=== PATIENT | female | born 1980 | race Two or more races ===

== ENCOUNTER 2017-08-06 06:10 | Day surgery (SDC) | payer OTHER ==
[~2017-08-06 06:10] MED LIST: AMOX250 PO; DICY20TA PO; NEXIUM40 MG/PACK PO; PHENERGAN25 MG PO; ZANTAC 7575 MG PO
== END 2017-08-06 10:55 | disposition home or self-care (01) ==
LOC: AMB-ENDOS 06:10
DX: K92.1 Melena (principal); N82.3 Fistula of vagina to large intestine; K92.2 Gastrointestinal hemorrhage, unspecified

== ENCOUNTER 2025-01-03 06:33 | Day surgery (SDC) | payer OTHER ==
[2025-01-01 11:41] VITALS: BP 139/90
[~2025-01-03] VITALS: Ht 162.6 cm; Wt 95.3 kg
[~2025-01-03 06:33] MED LIST changes: +MULTI VITAMIN1 EACH PO
[2025-01-03] MEDS ORDERED: POVIDONE-IODINE 118 ML BOTT TOP ONE (12:00)
[2025-01-03] MEDS ORDERED: PROMETHAZINE HCL 50 MG/ML AMPUL IM ONE (13:15)
[2025-01-03] MEDS ORDERED: MORPHINE SULFATE 4 MG/ML VIAL IV PRN (13:15)
== END 2025-01-03 17:15 | disposition home or self-care (01) ==
LOC: CIR.AMB 06:33
PROVIDERS: ATTEND Obstetrics & Gynecology
DX: N85.00 Endometrial hyperplasia, unspecified (principal); Z88.2 Allergy status to sulfonamides; Z88.6 Allergy status to analgesic agent; Z88.8 Allergy status to other drugs, medicaments and biological substances

== ENCOUNTER 2025-01-07 08:34 | Inpatient (IN) | payer OTHER ==
[~2025-01-07] VITALS: Ht 157.5 cm; Wt 95.3 kg
[2025-01-07 09:00] VITALS: O2SAT 95
--- NOTE | 2025-01-07 09:00 | NUR ---
SE RECIBE FEMINA ALERTA Y ORIENTADA X3 CUAL REFIERE PRESENTA RETENCION URINARIA DESDE LAS 3AM DE HOY. SE NGUYỄN S/V Y SE UBICA.
[2025-01-07] MEDS ORDERED: 0.9 % SODIUM CHLORIDE 1,000 ML IV STA (11:13)
[2025-01-07] MEDS ORDERED: ACETAMINOPHEN 500 MG GEL..CAP PO STA (11:14)
--- NOTE | 2025-01-07 12:45 | NUR ---
SE REALIZA LAB Y SE ADMINISTRA TX TARSHA ORDEN MEDICA BAJO MEDIDAS ASEPTICAS. SE ORIENTA PTE QUIEN REFIERE ENTENDER Y ACEPTAR
[2025-01-07 12:54] LABS: BASO % 0.2 % (0.1-1.2); EOS # 0.20 (0.04-0.54); EOS % 1.2 % (0.7-7.0); LYMPH # 1.90 (1.18-3.74); LYMPH % 11.1 % (19.3-53.1); MEAN PLATELET VOLUME 9.40 fl (9.4-12.4); MONO # 0.95 (0.24-0.82); MONO % 5.5 % (4.7-12.5); NEUT # 13.98 (1.56-6.13); NEUT % 81.5 % (34.0-71.1); RED CELL DISTRIBUTION WIDTH 14.3 % (11.6-14.4)
[2025-01-07 13:28] LABS: ALT/SGPT 29.0 U/L (12-78); AST/SGOT 12.0 U/L (15-37); BILIRUBIN TOTAL 0.48 mg/dL (0.3-1.2); BUN CREA RATIO 18.0 (7.0-25.0); CREATININE SERUM 0.66 mg/dL (0.55-1.02); GFR 96.85; GLOBULINA 4.3 G/DL (2.4-3.5); GLUCOSE FASTING 95.0 mg/dL (65-100); OSMOLALITY SERUM 281.0 MOSM/KG (275-295)
[2025-01-07 13:29] LABS: URINE APPEARANCE Cloudy; URINE BILIRRUBIN Negative (NEGATIVE); URINE BLOOD Large; URINE COLOR Dark Yellow; URINE GLUCOSE Negative (NEGATIVE); URINE KETONE Negative (NEGATIVE); URINE LEUKOCYTE Moderate; URINE NITRATE Positive; URINE PROTEIN >=1000 (NEGATIVE); URINE UROBILINOGEN 1.0 E.U./dl
[2025-01-07 13:31] LABS: URINE EPITHELIAL CELLS 10.9 uL (0.0-38.8); URINE RBC 1064.0 uL (0.0-20.8); URINE WBC 1579.0 uL (0.0-23.2)
[2025-01-07 14:01] LABS: URINE BACTERIA > 9821.5 uL (0.0-1933); URINE CAST 0.00 uL (0.0-1.40)
[2025-01-07] MEDS ORDERED: CEFTRIAXONE SODIUM 2,000 MG VIAL IV STA (17:38)
[2025-01-07 22:04] VITALS: BP 124/86
[2025-01-08 04:20] VITALS: BP 98/66
[2025-01-08 08:05] VITALS: BP 112/78
[2025-01-08] MEDS ORDERED: CEFAZOLIN SODIUM 2,000 MG in 0.9 % SODIUM CHLORIDE 100 ML IV SCH (09:39)
[2025-01-08 16:00] VITALS: BP 113/71
[2025-01-09 00:51] VITALS: BP 118/74
[2025-01-09 08:43] VITALS: BP 120/80
[2025-01-09 09:34] LABS: BASO % 0.3 % (0.1-1.2); EOS # 0.32 (0.04-0.54); EOS % 4.5 % (0.7-7.0); LYMPH # 1.52 (1.18-3.74); LYMPH % 21.4 % (19.3-53.1); MEAN PLATELET VOLUME 9.40 fl (9.4-12.4); MONO # 0.52 (0.24-0.82); MONO % 7.3 % (4.7-12.5); NEUT # 4.69 (1.56-6.13); NEUT % 66.2 % (34.0-71.1); RED CELL DISTRIBUTION WIDTH 14.1 % (11.6-14.4)
[2025-01-10 09:11] LABS: hav igm Negative (Negative); hep b c Negative (Negative); hep b s ag Negative (Negative)
== END 2025-01-09 13:26 | disposition home or self-care (01) | DRG 690 ==
LOC: ER 08:36 → OB/GYN 18:30 → SEC-K 18:30 → OB/GYN 20:08
PROVIDERS: General Practice; ADMIT Obstetrics & Gynecology; ATTEND Obstetrics & Gynecology
DX: N39.0 Urinary tract infection, site not specified (principal); R10.2 Pelvic and perineal pain